=== PATIENT | male | born 1945 | race Caucasian/White ===

== ENCOUNTER 2018-08-06 15:03 | Inpatient (IN) | payer BC, MEDICARE, OTHER ==
[~2018-08-06] VITALS: Ht 177.8 cm; Wt 135.0 kg
[2018-08-06 15:46] LABS: BASOPHILS # (AUTO) 0.1 X10'3 (0-0.2); BASOPHILS % (AUTO) 0.7 % (0-1); EOSINOPHILS # (AUTO) 0.2 X10'3 (0-0.9); EOSINOPHILS % (AUTO) 2.4 % (0-6); HEMATOCRIT 41.5 % (42.0-52.0); LYMPHOCYTES # (AUTO) 2.5 X10'3 (1.1-4.8); LYMPHOCYTES % (AUTO) 27.1 % (21-51); MEAN CORPUSCULAR HEMOGLOBIN 29.1 PG (27.0-31.0); MEAN CORPUSCULAR HGB CONC 33.8 g/dL (33.0-36.5); MEAN CORPUSCULAR VOLUME 86.1 FL (78-98); MONOCYTES # (AUTO) 0.9 X10'3 (0-0.9); MONOCYTES % (AUTO) 9.7 % (2-12); NEUTROPHILS # (AUTO) 5.5 X10'3 (1.8-7.7); NEUTROPHILS % (AUTO) 60.1 % (42-75); PLATELET COUNT 244 X10'3 (140-440); RED BLOOD COUNT 4.83 X10'6 (4.70-6.10); WHITE BLOOD COUNT 9.1 X10'3 (4.5-11.0)
[2018-08-06 16:11] LABS: PROTHROMBIN TIME 9.6 SECONDS (9.0-12.0)
[2018-08-06 16:12] LABS: INR 0.9 INR
[2018-08-06 16:16] LABS: ALANINE AMINOTRANSFERASE 24 U/L (12-78); ALBUMIN 3.2 G/DL (3.4-5.0); ALBUMIN/GLOBULIN RATIO 0.7 (1.1-1.5); ALKALINE PHOSPHATASE 76 IU/L (46-116); ANION GAP 10 (8-16); ASPARTATE AMINO TRANSFERASE 28 U/L (10-37); BILIRUBIN,TOTAL 0.3 MG/DL (0.1-1.0); BLOOD UREA NITROGEN 37 MG/DL (7-18); BUN/CREATININE RATIO 18.7 (5.4-32.0); CHLORIDE 100 MMOL/L (99-107); CREATININE 1.98 MG/DL (0.60-1.10); GLUCOSE 279 MG/DL (70-104); POTASSIUM 4.2 MMOL/L (3.5-5.1); SODIUM 133 MMOL/L (135-145); TOTAL CARBON DIOXIDE 23.5 MMOL/L (24-32); TOTAL PROTEIN 7.8 G/DL (6.4-8.2); eGFR 33 ML/MIN
[2018-08-06] MEDS ORDERED: aspirin 325mg tablet PO ONE (16:20)
[2018-08-06] MEDS ORDERED: enoxaparin 100mg/ml syringe SUBCUT ONE ×2 (16:20→16:25)
[2018-08-06 16:22] LABS: MAGNESIUM 1.9 MG/DL (1.5-2.4)
[2018-08-06] MEDS ORDERED: enoxaparin 40mg/0.4ml syringe SQ ONE (16:25)
[2018-08-06 16:59] LABS: D-DIMER 0.71 MG/L FEU (0-0.50)
[2018-08-06] MEDS ORDERED: LISI40TA4 PO (17:06)
[2018-08-06] MEDS ORDERED: TRAM50TA2 PO ×2 (17:06)
[2018-08-06] MEDS ORDERED: CHOL100046 PO (17:06)
[2018-08-06] MEDS ORDERED: ALLO300T2 PO (17:06)
[2018-08-06] MEDS ORDERED: MAGN400C PO (17:06)
[2018-08-06] MEDS ORDERED: MELO-102 PO (17:06)
[2018-08-06] MEDS ORDERED: SILD100T PO (17:06)
[2018-08-06] MEDS ORDERED: DEXT38GE12 PO (17:06)
[2018-08-06] MEDS ORDERED: BROM0.8T PO (17:06)
[2018-08-06] MEDS ORDERED: CYAN-19 PO (17:06)
[2018-08-06] MEDS ORDERED: ASPI-611 PO (17:06)
[2018-08-06] MEDS ORDERED: POTA20TA19 PO (17:06)
[2018-08-06] MEDS ORDERED: METO50TA17 PO (17:06)
[2018-08-06] MEDS ORDERED: FURO40TA4 PO (17:06)
[2018-08-06] MEDS ORDERED: DESO15CR13 TP (17:06)
[2018-08-06] MEDS ORDERED: KETO120S3 TOP (17:06)
[2018-08-06] MEDS ORDERED: INSU500I SQ ×2 (17:06)
[2018-08-06] MEDS ORDERED: SIMV20TA5 PO (17:06)
[2018-08-06] MEDS ORDERED: non-formulary drug (Meloxicam 1 TAB) PO PRN (17:50)
[2018-08-06] MEDS ORDERED: magnesium Cl slow-release 64mg tablet PO PRN (17:50)
[2018-08-06] MEDS ORDERED: potassium Cl 20 mEq SR tablet PO PRN ×2 (17:50)
[2018-08-06] MEDS ORDERED: traMADol 50MG tablet PO PRN ×2 (17:50)
[2018-08-06] MEDS ORDERED: potassium Cl 40MEQ/NS 500ml 500 ML IV PRN ×2 (17:50)
[2018-08-06] MEDS ORDERED: magnesium 2GM in 50ml NS 50 ML IV PRN (17:50)
[2018-08-06] MEDS ORDERED: magnesium 4gm in 100ml NS 100 ML IV PRN (17:50)
[2018-08-06] MEDS ORDERED: metoprolol tartrate 1mg/ml inj IV PRN (18:00)
[2018-08-06] MEDS ORDERED: nitroGLYCERIN 0.4mg SUBLingual tab SL PRN (18:00)
[2018-08-06] MEDS ORDERED: regadenoson 0.4mg/5ml syringe IV PRN (18:00)
[2018-08-06] MEDS ORDERED: aminophylline 250mg/10ml inj. IV PRN (18:00)
[2018-08-06] MEDS ORDERED: naproxen 500mg tablet PO PRN (18:10)
[2018-08-06] MEDS: atorvastatin 10mg tablet PO SCH (20:08)
[2018-08-06] MEDS: metoprolol tartrate 50mg tablet PO SCH (20:09)
[2018-08-06] MEDS: furosemide 40mg tablet PO SCH (20:09)
--- NOTE | 2018-08-06 20:30 | NUR ---
ADMITTED A 73 Y.O. MALE FROM ER PER [facility] TO ROOM 349A.
[2018-08-06 20:45] VITALS: BP 109/41
[2018-08-06] MEDS ORDERED: non-formulary drug (Simvastatin* (Zocor*) 1 TAB) PO SCH (21:00)
--- NOTE | 2018-08-06 21:50 | NUR ---
ACCU PDADR=086, PT. REFUSED INSULIN PER PROTOCOL.
[2018-08-06] MEDS ORDERED: pneumococcal 23-VAL P-sac vacc 25 mcg/0.5ml vial IMVAC ONE (21:55)
[2018-08-07] VITALS: BP 115/64
[2018-08-07 05:25] LABS: BASOPHILS # (AUTO) 0.1 X10'3 (0-0.2); BASOPHILS % (AUTO) 0.7 % (0-1); EOSINOPHILS # (AUTO) 0.4 X10'3 (0-0.9); EOSINOPHILS % (AUTO) 5.4 % (0-6); HEMATOCRIT 36.3 % (42.0-52.0); HEMOGLOBIN 12.3 g/dl (14.0-17.9); LYMPHOCYTES # (AUTO) 2.8 X10'3 (1.1-4.8); LYMPHOCYTES % (AUTO) 39.8 % (21-51); MEAN CORPUSCULAR HEMOGLOBIN 28.9 PG (27.0-31.0); MEAN CORPUSCULAR HGB CONC 33.7 g/dL (33.0-36.5); MEAN CORPUSCULAR VOLUME 85.6 FL (78-98); MEAN PLATELET VOLUME 7.9 FL (7.4-10.4); MONOCYTES # (AUTO) 0.8 X10'3 (0-0.9); NEUTROPHILS # (AUTO) 2.9 X10'3 (1.8-7.7); NEUTROPHILS % (AUTO) 42.1 % (42-75); PLATELET COUNT 198 X10'3 (140-440); RED BLOOD COUNT 4.24 X10'6 (4.70-6.10); RED CELL DISTRIBUTION WIDTH 16.1 % (11.5-14.5)
[2018-08-07 05:40] LABS: ALBUMIN 2.5 G/DL (3.4-5.0); ANION GAP 9 (8-16); BLOOD UREA NITROGEN 38 MG/DL (7-18); BUN/CREATININE RATIO 19.8 (5.4-32.0); CALCIUM 8.6 MG/DL (8.5-10.1); CHLORIDE 105 MMOL/L (99-107); CREATININE 1.92 MG/DL (0.60-1.10); GLUCOSE 219 MG/DL (70-104); MAGNESIUM 1.9 MG/DL (1.5-2.4); POTASSIUM 4.2 MMOL/L (3.5-5.1); SODIUM 137 MMOL/L (135-145); TOTAL CARBON DIOXIDE 22.8 MMOL/L (24-32); eGFR 35 ML/MIN
--- NOTE | 2018-08-07 06:33 | NUR ---
Patient in room [facility] 349. I have received report from Dalton EDOUARD and had the opportunity to ask questions and assume patient care.
[2018-08-07] MEDS: K and/or MAG REPLACEMENT MC SCH (07:06)
[2018-08-07] MEDS: aspirin 81mg tablet.DR PO SCH (07:06)
[2018-08-07] MEDS: allopurinol 300 MG tablet PO SCH (07:07)
[2018-08-07] MEDS: CYCLOSET PO SCH (07:07)
[2018-08-07 07:29] VITALS: BP 134/61
[2018-08-07] MEDS: metoprolol tartrate 50mg tablet PO SCH ×2 (08:00→20:02)
[2018-08-07] MEDS: lisinopril 20mg tablet PO SCH (08:00)
[2018-08-07] MEDS ORDERED: non-formulary drug (Lisinopril* 1 TAB) PO SCH (08:00)
[2018-08-07] MEDS ORDERED: non-formulary drug (Aspirin (Aspir 81) 1 TAB) PO SCH (08:00)
[2018-08-07] MEDS: furosemide 40mg tablet PO SCH ×2 (08:00→20:02)
[2018-08-07] MEDS ORDERED: BROMOCRIPTINE MESYLATE PO SCH (08:00)
[2018-08-07] MEDS ORDERED: MESSAGE TO PHARMACY PO ONE (10:55)
[2018-08-07] MEDS ORDERED: glucagon, human recombinant 1mg kit SUBCUT PRN (10:55)
[2018-08-07] MEDS ORDERED: dextrose ORAL solution 15 GM/59 ML bottle PO PRN ×2 (10:55)
[2018-08-07] MEDS ORDERED: dextrose 50%-water 50ml dispensing syringe IV PRN ×2 (10:55)
[2018-08-07] MEDS ORDERED: aminophylline inj. 10 ML IV ONE (11:27)
[2018-08-07] MEDS ORDERED: regadenoson 0.4mg/5ml syringe IV ONE (11:27)
--- NOTE | 2018-08-07 11:35 | NUR ---
Lexiscan stress test cancelled per Dr. Lopez. Patient had rest image only. pt asymptomatic, BP:153/52, HR:52, RR 16. SpO2 96% RA Dr. Lopez to follow up with consult.
--- NOTE | 2018-08-07 12:29 | NUR ---
Dr. Cheatham stated to keep patient NPO until Dr. Lopez consults with pt. Asked MD if she would like IVF ordered since pt is NPO. stated no. Awaiting for Dr. Lopez to see pt.
[2018-08-07] MEDS ORDERED: clopidogrel 75mg tablet PO ONE (12:50)
[2018-08-07] MEDS: insulin Lispro (HumaLOG) vial - multi-dose SQ SCH ×2 (13:16→18:45)
[2018-08-07 13:23] VITALS: BP 160/64
--- NOTE | 2018-08-07 15:49 | NUR ---
DM Consult: A1C 9.0. Pt seen by RD for written/verbal DM ed; RD contact information provided. RD encouraged to attend CDE course since pt states he would like refresher course. Pt stated he will have is stratigraphy teacher refer him if need be since [facility] since [facility] provide their own DM ed. Pt PO 100% meals meeting needs. LBM 08/06. GLU 207 w/ Lantus to start tonight. No nutrition concerns at this time. Rec: 1. continue heart healthy/carb controlled diet 2. wt per rx Addendum: 08/07/18 at [address] Amended: Links added.
--- NOTE | 2018-08-07 18:16 | NUR ---
Problems reprioritized. Patient report given, questions answered & plan of care reviewed with Dalton EDOUARD.
--- NOTE | 2018-08-07 18:17 | NUR ---
Patient in room [facility] 349. I have received report from SISSY EDOUARD and had the opportunity to ask questions and assume patient care.
[2018-08-07 19:00] VITALS: BP 151/68
[2018-08-07] MEDS ORDERED: insulin glargine (Lantus) pen - multi-dose SQ SCH (21:00)
[2018-08-07] MEDS: atorvastatin 10mg tablet PO SCH (21:04)
[2018-08-08] VITALS: BP 141/64
[2018-08-08 05:32] LABS: BASOPHILS % (AUTO) 0.6 % (0-1); EOSINOPHILS # (AUTO) 0.3 X10'3 (0-0.9); EOSINOPHILS % (AUTO) 4.5 % (0-6); HEMATOCRIT 37.1 % (42.0-52.0); HEMOGLOBIN 12.5 g/dl (14.0-17.9); LYMPHOCYTES # (AUTO) 2.1 X10'3 (1.1-4.8); MEAN CORPUSCULAR HEMOGLOBIN 28.7 PG (27.0-31.0); MEAN CORPUSCULAR HGB CONC 33.6 g/dL (33.0-36.5); MEAN CORPUSCULAR VOLUME 85.4 FL (78-98); MONOCYTES # (AUTO) 0.7 X10'3 (0-0.9); MONOCYTES % (AUTO) 11.4 % (2-12); NEUTROPHILS # (AUTO) 3.3 X10'3 (1.8-7.7); NEUTROPHILS % (AUTO) 51.5 % (42-75); PLATELET COUNT 201 X10'3 (140-440); RED BLOOD COUNT 4.34 X10'6 (4.70-6.10); RED CELL DISTRIBUTION WIDTH 16.2 % (11.5-14.5); WHITE BLOOD COUNT 6.5 X10'3 (4.5-11.0)
[2018-08-08 05:45] LABS: ALBUMIN 2.7 G/DL (3.4-5.0); ANION GAP 10 (8-16); BLOOD UREA NITROGEN 32 MG/DL (7-18); BUN/CREATININE RATIO 18.5 (5.4-32.0); CALCIUM 9.1 MG/DL (8.5-10.1); CHLORIDE 104 MMOL/L (99-107); CREATININE 1.73 MG/DL (0.60-1.10); GLUCOSE 208 MG/DL (70-104); MAGNESIUM 1.8 MG/DL (1.5-2.4); SODIUM 137 MMOL/L (135-145); TOTAL CARBON DIOXIDE 22.8 MMOL/L (24-32); eGFR 39 ML/MIN
--- NOTE | 2018-08-08 06:39 | NUR ---
Problems reprioritized. Patient report given, questions answered & plan of care reviewed with SAYDA EDOUARD.
[2018-08-08 07:00] VITALS: BP 152/59
[2018-08-08] MEDS ORDERED: clopidogrel 75mg tablet PO SCH (08:00)
[2018-08-08] MEDS: metoprolol tartrate 50mg tablet PO SCH (08:00)
[2018-08-08] MEDS: CYCLOSET PO SCH (08:00)
[2018-08-08] MEDS: K and/or MAG REPLACEMENT MC SCH (08:00)
[2018-08-08] MEDS: aspirin 81mg tablet.DR PO SCH (09:43)
[2018-08-08] MEDS: allopurinol 300 MG tablet PO SCH (09:43)
[2018-08-08] MEDS: furosemide 40mg tablet PO SCH (09:46)
[2018-08-08] MEDS: lisinopril 20mg tablet PO SCH (09:47)
[2018-08-08] MEDS: insulin Lispro (HumaLOG) vial - multi-dose SQ SCH ×2 (09:57→13:37)
[2018-08-08 12:00] VITALS: BP 151/51
[2018-08-08] MEDS ORDERED: CLOP75TA35 PO (12:05)
[2018-08-08] MEDS ORDERED: NITR0.4T51 SL (12:05)
== END 2018-08-08 14:10 | disposition home or self-care (01) | DRG 282 ==
LOC: ER 15:03 → ED HOLD 17:50 → EDBEDREQ 19:47 → SUR 3N 20:25
PROVIDERS: ADMIT Internal Medicine; ATTEND Internal Medicine
PROC: 4A02XM4 Measurement of Cardiac Total Activity, External Approach (ICD-10-PCS; principal; 2018-08-06)
PROC: 3E033HZ Introduction of Radioactive Substance into Peripheral Vein, Percutaneous Approach (ICD-10-PCS; 2018-08-06)
DX: I21.4 Non-ST elevation (NSTEMI) myocardial infarction (principal); E11.22 Type 2 diabetes mellitus with diabetic chronic kidney disease; E78.5 Hyperlipidemia, unspecified; I87.2 Venous insufficiency (chronic) (peripheral); M10.9 Gout, unspecified; I12.9 Hypertensive chronic kidney disease with stage 1 through stage 4 chronic kidney disease, or unspecified chronic kidney disease; R00.0 Tachycardia, unspecified; N18.3 Chronic kidney disease, stage 3 (moderate); Z66 Do not resuscitate; Z79.4 Long term (current) use of insulin; Z85.51 Personal history of malignant neoplasm of bladder; Z86.14 Personal history of Methicillin resistant Staphylococcus aureus infection; Z79.899 Other long term (current) drug therapy; Z79.82 Long term (current) use of aspirin
CPT/HCPCS: 36415; 71045; 78451; 80048; 80053; 82948; 83036; 83735; 83880; 84484; 85025; 85379; 85610; 87070; 93005; 93306; 96372; 99285; A9500; G0378; J0280; J1650; J1815

== ENCOUNTER 2019-02-07 10:22 | Inpatient (IN) | payer BC, MEDICARE, OTHER ==
[~2019-02-07] VITALS: Ht 177.8 cm; Wt 127.0 kg
[~2019-02-07 10:22] MED LIST: ALLO300T2 PO; ASPI-611 PO; BROM0.8T PO; CHOL100046 PO; CLOP75TA35 PO; CYAN-51 PO; DESO15CR13 TP; DEXT38GE12 PO; FURO40TA4 PO; INSU500I SQ; KETO120S3 TOP; LISI40TA4 PO; MAGN400C PO; MELO-102 PO; METO50TA17 PO; NITR0.4T51 SL; POTA20TA19 PO; SILD100T PO; SIMV20TA5 PO; TRAM50TA2 PO
[2019-02-07] MEDS ORDERED: normal saline 1000ML IV soln IVB ONE (10:45)
[2019-02-07 11:33] LABS: CLARITY,URINE CLOUDY (Clear); COLOR,URINE YELLOW (Yellow); GLUCOSE, URINE >=1000 mg/dl (Neg); KETONES,URINE NEGATIVE (Neg); LEUKOCYTE ESTERASE ,URINE MODERATE (Neg); NITRITES, URINE NEGATIVE (Neg); OCCULT BLOOD,URINE LARGE (Neg); PROTEIN,URINE 100 mg/dl (Neg); UROBILINOGEN,URINE 0.2 E.U/dL (0.2-1.0)
[2019-02-07 11:34] LABS: UA COLLECTION TYPE CLN CATCH MIDSTREAM
[2019-02-07 11:41] LABS: SQUAMOUS EPITHELIAL CELL,UR FEW /LPF (FEW); WBC CLUMPS,URINE MODERATE /HPF (NEGATIVE); WBC,URINE TNTC /HPF (0-4)
[2019-02-07 11:42] LABS: BACTERIA,URINE 4+ /HPF (Neg); HYALINE CASTS 0-3 /LPF (NEGATIVE)
[2019-02-07 11:50] LABS: BASOPHILS # (AUTO) 0.1 X10'3 (0-0.2); BASOPHILS % (AUTO) 0.8 % (0-1); EOSINOPHILS # (AUTO) 0.1 X10'3 (0-0.9); EOSINOPHILS % (AUTO) 0.4 % (0-6); HEMATOCRIT 42.3 % (42.0-52.0); LYMPHOCYTES # (AUTO) 2.8 X10'3 (1.1-4.8); LYMPHOCYTES % (AUTO) 15.7 % (21-51); MEAN CORPUSCULAR HEMOGLOBIN 28.4 PG (27.0-31.0); MEAN CORPUSCULAR HGB CONC 33.1 g/dL (33.0-36.5); MEAN CORPUSCULAR VOLUME 85.8 FL (78-98); MEAN PLATELET VOLUME 7.3 FL (7.4-10.4); MONOCYTES # (AUTO) 1.5 X10'3 (0-0.9); MONOCYTES % (AUTO) 8.5 % (2-12); NEUTROPHILS % (AUTO) 74.6 % (42-75); PLATELET COUNT 289 X10'3 (140-440); RED BLOOD COUNT 4.93 X10'6 (4.70-6.10); RED CELL DISTRIBUTION WIDTH 14.6 % (11.5-14.5); WHITE BLOOD COUNT 17.5 X10'3 (4.5-11.0)
[2019-02-07] MEDS ORDERED: CefTRIAXone 2gm/D5W 50ml 50 ML IV ONE (11:55)
[2019-02-07] MEDS ORDERED: normal saline 1000ML IV soln IV ONE (11:55)
[2019-02-07 12:16] LABS: ALANINE AMINOTRANSFERASE 19 U/L (12-78); ALBUMIN 2.9 G/DL (3.4-5.0); ALBUMIN/GLOBULIN RATIO 0.6 (1.1-1.5); ALKALINE PHOSPHATASE 80 IU/L (46-116); ANION GAP 13 (8-16); ASPARTATE AMINO TRANSFERASE 14 U/L (10-37); BILIRUBIN,TOTAL 0.8 MG/DL (0.1-1.0); BLOOD UREA NITROGEN 37 MG/DL (7-18); BUN/CREATININE RATIO 17.5 (5.4-32.0); CALCIUM 9.1 MG/DL (8.5-10.1); CHLORIDE 101 MMOL/L (99-107); CREATININE 2.12 MG/DL (0.60-1.10); GLUCOSE 310 MG/DL (70-104); SODIUM 135 MMOL/L (135-145); TOTAL CARBON DIOXIDE 21.5 MMOL/L (24-32); TOTAL PROTEIN 7.7 G/DL (6.4-8.2); TROPONIN I < 0.04 NG/ML (0.0-0.05); eGFR 31 ML/MIN
[2019-02-07] MEDS ORDERED: ondansetron/PF 4mg/2ml inj IV PRN (12:45)
[2019-02-07] MEDS ORDERED: magnesium hydroxide 30ml (MOM) UD suspension PO PRN (12:45)
[2019-02-07] MEDS ORDERED: mag hydrox/Alum hydrox/simeth 30ml oral suspension PO PRN (12:45)
[2019-02-07] MEDS ORDERED: acetaminophen 325mg tablet PO PRN (12:45)
[2019-02-07] MEDS ORDERED: METO-384 PO (13:09)
[2019-02-07] MEDS ORDERED: ISOS60TA4 PO (13:11)
[2019-02-07] MEDS: normal saline 1000ml 1,000 ML IV SCH ×2 (13:54→22:45)
--- NOTE | 2019-02-07 14:00 | NUR ---
Patient in room PCU 3025. I have received report from JAVAN Saenz and had the opportunity to ask questions and assume patient care.
[2019-02-07 15:30] VITALS: BP 93/73
[2019-02-07] MEDS ORDERED: NEFA200T PO (16:47)
[2019-02-07] MEDS ORDERED: ATOR40TA71 PO (16:47)
[2019-02-07] MEDS ORDERED: allopurinol 300 MG tablet PO PRN (17:10)
[2019-02-07] MEDS ORDERED: nitroGLYCERIN 0.4mg SUBLingual tab SL PRN (17:10)
[2019-02-07] MEDS ORDERED: hydrocortisone 1% cream 28gm TP PRN (17:10)
--- NOTE | 2019-02-07 17:11 | NUR ---
Sent to Dr Ordonez PAGER ID: [phone] MESSAGE: RE: Nathen Coyle [id number]. Pt had hyperglycemia in ED, Hx of DM II; no orders for ACHS. -Marivel 3372
[2019-02-07 18:00] VITALS: BP 195/82
--- NOTE | 2019-02-07 18:01 | NUR ---
Sent to Dr Ordonez RE: Nathen Coyle [id number]. BP 187/80. -Marivel 5129
[2019-02-07] MEDS ORDERED: hydrALAZINE 20mg/ml inj. IV ONE (18:05)
--- NOTE | 2019-02-07 18:15 | NUR ---
Problems reprioritized. Patient report given, questions answered & plan of care reviewed with JAVAN Kemp.
--- NOTE | 2019-02-07 18:23 | NUR ---
Patient in room PCU 3025. I have received report from Marivel EDOUARD and had the opportunity to ask questions and assume patient care.
[2019-02-07 18:30] VITALS: BP 156/60
[2019-02-07] MEDS: heparin, porcine 5000 units/ml vial SQ SCH (19:07)
[2019-02-07] MEDS: metoprolol succinate 25mg (24-HOUR) SR. Tablet PO SCH (19:07)
--- NOTE | 2019-02-07 19:30 | NUR ---
pt HR went up to 150, pt was using wash cloth to wipe his body in bed. Hr went back to normal SR after
[2019-02-07] MEDS: nystatin 15 GM powder TP SCH (21:00)
[2019-02-07] MEDS ORDERED: HUMULIN R SQ SCH (21:00)
--- NOTE | 2019-02-07 21:52 | NUR ---
Paged Dr. Armstrong PAGER ID: [phone] MESSAGE: Monalisa #[phone], Nathen Coyle [id number]. Has home insulin, humulinR darrenpen, 110 units scheduled for HS (order put in by Dr. Ordonez) but his evening BS was 80. Please advise on dosage. Thanks Addendum: 02/07/19 at 2158 by Monalisa Puente RN Dr. Armstrong advised to use our evening sliding scale and to hold the dose.
--- NOTE | 2019-02-07 22:09 | NUR ---
contacted Dr. Armstrong again about Blood sugar of 80, he said follow the hyperglycemia protocal and dont give anything for tonight. but take blood sugar again in 3hours
[2019-02-07 23:00] VITALS: BP 144/65
[2019-02-08] VITALS (7 sets, daily range): BP systolic 98–177; BP diastolic 49–82
[2019-02-08] MEDS: magnesium oxide 400mg tablet PO SCH ×4 (00:10→23:36)
--- NOTE | 2019-02-08 01:00 | NUR ---
Patient in room PCU 3025. I have received report from Viridiana EDOUARD and had the opportunity to ask questions and assume patient care.
--- NOTE | 2019-02-08 01:05 | NUR ---
Problems reprioritized. Patient report given, questions answered & plan of care reviewed with Monalisa EDOUARD.
[2019-02-08] MEDS: normal saline 1000ml 1,000 ML IV SCH ×2 (03:27→16:17)
[2019-02-08 05:25] LABS: ALBUMIN 2.3 G/DL (3.4-5.0); ANION GAP 11 (8-16); BLOOD UREA NITROGEN 28 MG/DL (7-18); BUN/CREATININE RATIO 16.9 (5.4-32.0); CALCIUM 8.5 MG/DL (8.5-10.1); CHLORIDE 110 MMOL/L (99-107); CREATININE 1.66 MG/DL (0.60-1.10); GLUCOSE 98 MG/DL (70-104); SODIUM 142 MMOL/L (135-145); TOTAL CARBON DIOXIDE 21.3 MMOL/L (24-32); eGFR 41 ML/MIN
[2019-02-08 05:32] LABS: BASOPHILS % (AUTO) 0.1 % (0-1); EOSINOPHILS % (AUTO) 0.2 % (0-6); HEMATOCRIT 36.9 % (42.0-52.0); HEMOGLOBIN 12.4 g/dl (14.0-17.9); LYMPHOCYTES # (AUTO) 2.6 X10'3 (1.1-4.8); LYMPHOCYTES % (AUTO) 18.5 % (21-51); MEAN CORPUSCULAR HEMOGLOBIN 28.4 PG (27.0-31.0); MEAN CORPUSCULAR HGB CONC 33.6 g/dL (33.0-36.5); MEAN CORPUSCULAR VOLUME 84.4 FL (78-98); MEAN PLATELET VOLUME 7.1 FL (7.4-10.4); MONOCYTES # (AUTO) 1.1 X10'3 (0-0.9); MONOCYTES % (AUTO) 8.1 % (2-12); NEUTROPHILS # (AUTO) 10.3 X10'3 (1.8-7.7); NEUTROPHILS % (AUTO) 73.1 % (42-75); PLATELET COUNT 238 X10'3 (140-440); RED BLOOD COUNT 4.37 X10'6 (4.70-6.10); RED CELL DISTRIBUTION WIDTH 14.2 % (11.5-14.5); WHITE BLOOD COUNT 14.1 X10'3 (4.5-11.0)
--- NOTE | 2019-02-08 06:15 | NUR ---
Problems reprioritized. Patient report given, questions answered & plan of care reviewed with Andie EDOUARD and Anel EDOUARD.
[2019-02-08] MEDS: aspirin 81mg tablet.DR PO SCH (07:50)
[2019-02-08] MEDS: CefTRIAXone 2gm/D5W 50ml 50 ML IV SCH (07:50)
[2019-02-08] MEDS: isosorbide dinitrate 30mg tablet PO SCH (07:50)
[2019-02-08] MEDS: metoprolol succinate 25mg (24-HOUR) SR. Tablet PO SCH ×2 (07:51→20:04)
[2019-02-08] MEDS: atorvastatin 20mg tablet PO SCH (07:51)
[2019-02-08] MEDS: cyanocobalamin 500mcg tablet PO SCH (07:51)
[2019-02-08] MEDS: potassium Cl 20 mEq SR tablet PO SCH (07:51)
[2019-02-08] MEDS: heparin, porcine 5000 units/ml vial SQ SCH ×2 (07:52→20:05)
[2019-02-08] MEDS: lisinopril 20mg tablet PO SCH (07:52)
[2019-02-08] MEDS: vitamin D (cholecalciferol) 1,000 unit tablet PO SCH (07:52)
[2019-02-08] MEDS ORDERED: HUMULIN R SQ SCH (08:00)
--- NOTE | 2019-02-08 08:00 | NUR ---
Patient was c/o shakiness and panic attack symptoms. Blood glucose was checked and blood pressure was obtained. Patient had a significant drop from the 0700 blood pressure. MD was notified and no new orders were obtained. Will monitor closely.
[2019-02-08] MEDS ORDERED: MESSAGE TO PHARMACY PO ONE (08:55)
[2019-02-08] MEDS ORDERED: glucagon, human recombinant 1mg kit SUBCUT PRN (08:55)
[2019-02-08] MEDS ORDERED: dextrose 50%-water 50ml dispensing syringe IV PRN ×2 (08:55)
[2019-02-08] MEDS ORDERED: dextrose ORAL solution 15 GM/59 ML bottle PO PRN ×2 (08:55)
[2019-02-08] MEDS ORDERED: insulin regular, human vial - multi-dose SQ SCH (09:15)
[2019-02-08] MEDS: nystatin 15 GM powder TP SCH ×3 (13:15→21:12)
--- NOTE | 2019-02-08 17:44 | NUR ---
PAGER ID: [phone] MESSAGE: [id number]. Can we change to the Humalog insulin for the hyperglycemic protocol and D/C using his insulin pen? Patient insulin has been ineffective treating blood sugars over 200 multiple times. Andie [phone]
--- NOTE | 2019-02-08 18:21 | NUR ---
Patient in room PCU 3025. I have received report from Andie EDOUARD and had the opportunity to ask questions and assume patient care.
--- NOTE | 2019-02-08 18:28 | NUR ---
Problems reprioritized. Patient report given, questions answered & plan of care reviewed with Viridiana EDOUARD. Patient stable at transfer of care.
--- NOTE | 2019-02-08 18:41 | NUR ---
PAGER ID: [phone] MESSAGE: Dr. José Luis Temple, pt Andres Slater has Humilin R for his blood sugar and that doesn't seem to help bring down his blood sugar. Can we put him on our hypoglycemic protocol and DC his home insulin? Viridiana EDOUARD [phone], Thanks!
--- NOTE | 2019-02-08 18:56 | NUR ---
Dr Ordonez gave an order for the hyperglycemic protocol and DC his old insulin
[2019-02-08] MEDS: insulin Lispro (HumaLOG) vial - multi-dose SQ SCH (19:09)
[2019-02-08] MEDS: lactobacillus rhamnosus 10,000 MMU CELLS/CAPSULE PO SCH (20:12)
[2019-02-08] MEDS ORDERED: insulin glargine (Lantus) pen - multi-dose SQ SCH (21:00)
[2019-02-08] MEDS: insulin glargine (Lantus) pen - multi-dose SQ SCH (21:11)
[2019-02-09] VITALS (7 sets, daily range): BP systolic 117–174; BP diastolic 55–91
[2019-02-09] MEDS: normal saline 1000ml 1,000 ML IV SCH ×3 (02:00→21:57)
[2019-02-09 05:28] LABS: BASOPHILS # (AUTO) 0.1 X10'3 (0-0.2); BASOPHILS % (AUTO) 0.6 % (0-1); EOSINOPHILS # (AUTO) 0.4 X10'3 (0-0.9); EOSINOPHILS % (AUTO) 4.2 % (0-6); HEMOGLOBIN 11.9 g/dl (14.0-17.9); LYMPHOCYTES # (AUTO) 2.9 X10'3 (1.1-4.8); MEAN CORPUSCULAR HGB CONC 34.1 g/dL (33.0-36.5); MEAN CORPUSCULAR VOLUME 84.9 FL (78-98); MEAN PLATELET VOLUME 7.3 FL (7.4-10.4); MONOCYTES # (AUTO) 1.2 X10'3 (0-0.9); MONOCYTES % (AUTO) 11.1 % (2-12); NEUTROPHILS # (AUTO) 5.8 X10'3 (1.8-7.7); NEUTROPHILS % (AUTO) 56.1 % (42-75); PLATELET COUNT 235 X10'3 (140-440); RED BLOOD COUNT 4.12 X10'6 (4.70-6.10); RED CELL DISTRIBUTION WIDTH 14.2 % (11.5-14.5); WHITE BLOOD COUNT 10.4 X10'3 (4.5-11.0)
[2019-02-09 05:33] LABS: ALBUMIN 2.2 G/DL (3.4-5.0); ANION GAP 8 (8-16); BLOOD UREA NITROGEN 33 MG/DL (7-18); BUN/CREATININE RATIO 19.2 (5.4-32.0); CALCIUM 8.6 MG/DL (8.5-10.1); CHLORIDE 107 MMOL/L (99-107); CREATININE 1.72 MG/DL (0.60-1.10); GLUCOSE 112 MG/DL (70-104); POTASSIUM 4.2 MMOL/L (3.5-5.1); SODIUM 139 MMOL/L (135-145); TOTAL CARBON DIOXIDE 23.7 MMOL/L (24-32); eGFR 39 ML/MIN
--- NOTE | 2019-02-09 06:29 | NUR ---
Patient in room PCU 3025. I have received report from Viridiana EDOUARD and had the opportunity to ask questions and assume patient care.
[2019-02-09] MEDS: lisinopril 20mg tablet PO SCH (08:00)
[2019-02-09] MEDS: metoprolol succinate 25mg (24-HOUR) SR. Tablet PO SCH ×2 (08:00→19:40)
[2019-02-09] MEDS: CefTRIAXone 2gm/D5W 50ml 50 ML IV SCH (08:39)
[2019-02-09] MEDS: lactobacillus rhamnosus 10,000 MMU CELLS/CAPSULE PO SCH ×2 (08:40→19:39)
[2019-02-09] MEDS: aspirin 81mg tablet.DR PO SCH (08:41)
[2019-02-09] MEDS: isosorbide dinitrate 30mg tablet PO SCH (08:41)
[2019-02-09] MEDS: magnesium oxide 400mg tablet PO SCH ×2 (08:42→15:16)
[2019-02-09] MEDS: atorvastatin 20mg tablet PO SCH (08:42)
[2019-02-09] MEDS: cyanocobalamin 500mcg tablet PO SCH (08:43)
[2019-02-09] MEDS: potassium Cl 20 mEq SR tablet PO SCH (08:43)
[2019-02-09] MEDS: vitamin D (cholecalciferol) 1,000 unit tablet PO SCH (08:44)
[2019-02-09] MEDS: nystatin 15 GM powder TP SCH ×3 (08:46→19:42)
[2019-02-09] MEDS: heparin, porcine 5000 units/ml vial SQ SCH ×2 (08:46→19:38)
[2019-02-09] MEDS: insulin Lispro (HumaLOG) vial - multi-dose SQ SCH ×3 (09:52→19:36)
--- NOTE | 2019-02-09 10:42 | NUR ---
Sent page to Dr. Patterson: PAGER ID: [phone] MESSAGE: [id number], Lola. Current BP medications ordered bottomed out patients BP to 98 SBP, Dr. Ordonez talked about adjusting medications. Did you still want them given? Thanks. Elli [phone]
--- NOTE | 2019-02-09 17:27 | NUR ---
Sent page to RT [id number] Leonides: LUIZ ordered for patient. Thanks, Elli [phone]
--- NOTE | 2019-02-09 17:57 | NUR ---
[place] documentation: I have reviewed and agree with all interventions, assessments performed and documented by JAVAN Tam. [place] Medication Administration: For this medication-pass time frame, all medication were reviewed, dispensed, administered and documented per hospital policy by JAVAN Tam.
--- NOTE | 2019-02-09 18:20 | NUR ---
Patient in room PCU 3022E. I have received report from JAVAN Calloway and had the opportunity to ask questions and assume patient care. Pt is alert and oriented X4, denies CP, n/v, pain. Pt is accompanied by who will call to find -out ABG's results. Will continue to monitor
--- NOTE | 2019-02-09 18:22 | NUR ---
Problems reprioritized. Patient report given, questions answered & plan of care reviewed with Donald EDOUARD.
[2019-02-09] MEDS: insulin glargine (Lantus) pen - multi-dose SQ SCH (22:00)
[2019-02-10] VITALS (7 sets, daily range): BP systolic 82–175; BP diastolic 40–100
[2019-02-10] MEDS: magnesium oxide 400mg tablet PO SCH ×4 (04:06→23:55)
[2019-02-10 06:07] LABS: BASOPHILS # (AUTO) 0.1 X10'3 (0-0.2); BASOPHILS % (AUTO) 0.7 % (0-1); EOSINOPHILS # (AUTO) 0.3 X10'3 (0-0.9); EOSINOPHILS % (AUTO) 2.9 % (0-6); HEMATOCRIT 34.8 % (42.0-52.0); HEMOGLOBIN 11.7 g/dl (14.0-17.9); LYMPHOCYTES # (AUTO) 2.6 X10'3 (1.1-4.8); LYMPHOCYTES % (AUTO) 30.3 % (21-51); MEAN CORPUSCULAR HEMOGLOBIN 28.7 PG (27.0-31.0); MEAN CORPUSCULAR HGB CONC 33.6 g/dL (33.0-36.5); MEAN CORPUSCULAR VOLUME 85.5 FL (78-98); MONOCYTES # (AUTO) 0.8 X10'3 (0-0.9); MONOCYTES % (AUTO) 9.2 % (2-12); NEUTROPHILS # (AUTO) 4.9 X10'3 (1.8-7.7); NEUTROPHILS % (AUTO) 56.9 % (42-75); PLATELET COUNT 238 X10'3 (140-440); RED BLOOD COUNT 4.07 X10'6 (4.70-6.10); RED CELL DISTRIBUTION WIDTH 13.9 % (11.5-14.5); WHITE BLOOD COUNT 8.7 X10'3 (4.5-11.0)
[2019-02-10 06:13] LABS: ALBUMIN 2.2 G/DL (3.4-5.0); ANION GAP 9 (8-16); BLOOD UREA NITROGEN 28 MG/DL (7-18); BUN/CREATININE RATIO 17.8 (5.4-32.0); CALCIUM 8.2 MG/DL (8.5-10.1); CHLORIDE 106 MMOL/L (99-107); CREATININE 1.57 MG/DL (0.60-1.10); GLUCOSE 247 MG/DL (70-104); POTASSIUM 4.6 MMOL/L (3.5-5.1); SODIUM 137 MMOL/L (135-145); TOTAL CARBON DIOXIDE 21.9 MMOL/L (24-32); eGFR 44 ML/MIN
--- NOTE | 2019-02-10 06:45 | NUR ---
Problems reprioritized. Patient report given, questions answered & plan of care reviewed with JAVAN Johnson. Pt stable at shift change
--- NOTE | 2019-02-10 06:48 | NUR ---
Patient in room PCU 3025. I have received report from Donald EDOUARD and had the opportunity to ask questions and assume patient care.
[2019-02-10 08:21] LABS: ABG BASE EXCESS -2.4 mmol/L (-2.0-3.0); ABG HCO3 20.4 mmol/L (22.0-26.0); ABG OXYGEN SATURATION 97.4 % (95-98); ABG PCO2 (T) 29.3 mmHg (35.0-45.0); ABG PO2 (T) 92.9 mmHg (83-108); ALLEN'S TEST Positive; FCOHb 0.3 % (0.5-1.5); FMetHb 0.1 % (0.3-1.12); MINUTE VOLUME 6 L/min; PATIENT TEMPERATURE 37.1; PEEP 5 cm H2O; RESPIRATORY RATE 14 b/min; RESPIRATORY RATE (OBSERVED) 14 b/min; TIDAL VOLUME 400 mL; TOTAL HEMOGLOBIN 11.8 G/dl (14.0-17.9)
[2019-02-10] MEDS: insulin Lispro (HumaLOG) vial - multi-dose SQ SCH ×3 (08:52→19:43)
[2019-02-10] MEDS: metoprolol succinate 25mg (24-HOUR) SR. Tablet PO SCH ×2 (08:54→19:46)
[2019-02-10] MEDS: cyanocobalamin 500mcg tablet PO SCH (08:57)
[2019-02-10] MEDS: potassium Cl 20 mEq SR tablet PO SCH (08:57)
[2019-02-10] MEDS: atorvastatin 20mg tablet PO SCH (08:58)
[2019-02-10] MEDS: vitamin D (cholecalciferol) 1,000 unit tablet PO SCH (08:59)
[2019-02-10] MEDS: lisinopril 20mg tablet PO SCH (08:59)
[2019-02-10] MEDS: aspirin 81mg tablet.DR PO SCH (09:00)
[2019-02-10] MEDS: isosorbide dinitrate 30mg tablet PO SCH (09:00)
[2019-02-10] MEDS: lactobacillus rhamnosus 10,000 MMU CELLS/CAPSULE PO SCH ×2 (09:01→19:47)
[2019-02-10] MEDS: heparin, porcine 5000 units/ml vial SQ SCH ×2 (09:06→19:48)
[2019-02-10] MEDS: CefTRIAXone 2gm/D5W 50ml 50 ML IV SCH (09:15)
[2019-02-10] MEDS: normal saline 1000ml 1,000 ML IV SCH (09:16)
[2019-02-10] MEDS: nystatin 15 GM powder TP SCH ×3 (09:35→21:55)
[2019-02-10] MEDS ORDERED: LORazepam 2 mg/ml vial IV ONE (10:50)
[2019-02-10 11:35] LABS: CHOL/HDL RATIO 4.7 (0.00-4.99); CHOLESTEROL 132 MG/DL (0-200); HDL CHOLESTEROL 28 MG/DL (35-60); LDL CHOLESTEROL 87 MG/DL (50-100); TRIGLYCERIDES 129 MG/DL (20-135)
--- NOTE | 2019-02-10 11:46 | NUR ---
Student documentation: I have reviewed interventions, assessments performed and documented by Tony [facility].
--- NOTE | 2019-02-10 11:47 | NUR ---
Student Medication Administration: For this medication-pass time frame, all medication were reviewed, dispensed, administered and documented per hospital policy by Tony [facility].
--- NOTE | 2019-02-10 15:35 | NUR ---
PAGER ID: [phone] MESSAGE: [id number] Nathen Coyle: MRI resulted. JAVAN Marquez Ext [phone]
--- NOTE | 2019-02-10 18:19 | NUR ---
Patient in room PCU 3028B. I have received report from JAVAN Calloway and had the opportunity to ask questions and assume patient care. Patient is alert and oriented, accompanied by relatives. Pt denies CP, n/v, dizziness, or pain. Will continue to monitor
--- NOTE | 2019-02-10 18:19 | NUR ---
Problems reprioritized. Patient report given, questions answered & plan of care reviewed with Donald EDOUARD.
[2019-02-10] MEDS: furosemide 40mg/4ml inj IV SCH (19:47)
[2019-02-10] MEDS ORDERED: metoprolol succinate 25mg (24-HOUR) SR. Tablet PO SCH (20:00)
[2019-02-10] MEDS: insulin glargine (Lantus) pen - multi-dose SQ SCH (21:54)
[2019-02-11 02:00] VITALS: BP 155/68
--- NOTE | 2019-02-11 06:00 | NUR ---
Patient in room PCU 3025. I have received report from Donald EDOUARD and had the opportunity to ask questions and assume patient care.
[2019-02-11 06:10] LABS: BASOPHILS # (AUTO) 0.1 X10'3 (0-0.2); BASOPHILS % (AUTO) 0.9 % (0-1); EOSINOPHILS # (AUTO) 0.3 X10'3 (0-0.9); EOSINOPHILS % (AUTO) 3.2 % (0-6); HEMATOCRIT 37.9 % (42.0-52.0); HEMOGLOBIN 12.5 g/dl (14.0-17.9); LYMPHOCYTES # (AUTO) 3.2 X10'3 (1.1-4.8); LYMPHOCYTES % (AUTO) 37.8 % (21-51); MEAN CORPUSCULAR HEMOGLOBIN 28.7 PG (27.0-31.0); MEAN CORPUSCULAR HGB CONC 33.1 g/dL (33.0-36.5); MEAN CORPUSCULAR VOLUME 86.8 FL (78-98); MEAN PLATELET VOLUME 7.7 FL (7.4-10.4); MONOCYTES % (AUTO) 11.4 % (2-12); NEUTROPHILS % (AUTO) 46.7 % (42-75); PLATELET COUNT 223 X10'3 (140-440); RED BLOOD COUNT 4.36 X10'6 (4.70-6.10); RED CELL DISTRIBUTION WIDTH 14.3 % (11.5-14.5); WHITE BLOOD COUNT 8.5 X10'3 (4.5-11.0)
--- NOTE | 2019-02-11 06:15 | NUR ---
Problems reprioritized. Patient report given, questions answered & plan of care reviewed with JAVAN Coelho . Patient stable at shift change
[2019-02-11 06:29] LABS: ALBUMIN 2.4 G/DL (3.4-5.0); ANION GAP 11 (8-16); BLOOD UREA NITROGEN 29 MG/DL (7-18); BUN/CREATININE RATIO 14.8 (5.4-32.0); CALCIUM 8.9 MG/DL (8.5-10.1); CHLORIDE 106 MMOL/L (99-107); CREATININE 1.96 MG/DL (0.60-1.10); GLUCOSE 128 MG/DL (70-104); POTASSIUM 4.5 MMOL/L (3.5-5.1); SODIUM 140 MMOL/L (135-145); TOTAL CARBON DIOXIDE 22.6 MMOL/L (24-32); eGFR 34 ML/MIN
[2019-02-11] MEDS: furosemide 40mg/4ml inj IV SCH (08:03)
[2019-02-11] MEDS: CefTRIAXone 2gm/D5W 50ml 50 ML IV SCH (08:04)
[2019-02-11] MEDS: cyanocobalamin 500mcg tablet PO SCH (08:05)
[2019-02-11] MEDS: heparin, porcine 5000 units/ml vial SQ SCH (08:05)
[2019-02-11] MEDS: vitamin D (cholecalciferol) 1,000 unit tablet PO SCH (08:05)
[2019-02-11] MEDS: magnesium oxide 400mg tablet PO SCH (08:06)
[2019-02-11] MEDS: potassium Cl 20 mEq SR tablet PO SCH (08:06)
[2019-02-11] MEDS: atorvastatin 20mg tablet PO SCH (08:07)
[2019-02-11] MEDS: lactobacillus rhamnosus 10,000 MMU CELLS/CAPSULE PO SCH (08:07)
[2019-02-11] MEDS: aspirin 81mg tablet.DR PO SCH (08:07)
[2019-02-11 08:09] VITALS: BP_SYST 150
[2019-02-11] MEDS: isosorbide dinitrate 30mg tablet PO SCH (08:09)
[2019-02-11] MEDS: lisinopril 20mg tablet PO SCH (08:09)
[2019-02-11] MEDS: metoprolol succinate 25mg (24-HOUR) SR. Tablet PO SCH (08:10)
[2019-02-11] MEDS: nystatin 15 GM powder TP SCH ×2 (08:14→13:26)
[2019-02-11] MEDS: insulin Lispro (HumaLOG) vial - multi-dose SQ SCH ×2 (08:42→13:24)
--- NOTE | 2019-02-11 11:22 | NUR ---
Initial: Pt admit with metabolic encephalopathy and sepsis secondary to UTI. Sepsis score 0 per physical assessment. Pt continues with some confusion and pt on Lasix for CHF per MD notes. Pt currently on CHO controlled diet with improving PO intake, previously averaging 50-75%, now 75-100% meeting nutrient needs. LBM 02/08. No edema or wounds. No nutrition diagnosis at this time. Will continue to follow. Recommendations: 1) Continue CHO controlled diet 2) Wt per rx Addendum: 02/11/19 at [address] Amended: Links added.
[2019-02-11] MEDS ORDERED: LEVO500T2 PO (12:11)
[2019-02-11] MEDS ORDERED: FURO40TA4 PO (12:11)
[2019-02-11] MEDS ORDERED: CLOP75TA15 PO (12:49)
--- NOTE | 2019-02-11 13:33 | NUR ---
Patient discharged stable to home with spouse. Discharge instructions given to patient and spouse verbally and written. [facility], spouse was able to make appointment. Hand written prescription for Levaquin given to spouse, prescription for [place] faxed to [place] in [place]. PIV x 1 removed, cannula intact. Tele box removed and returned to telegraph dispatcher room. All personal belongings returned to patient. Patient wheeled out via w/c by staff to private vehicle.
== END 2019-02-11 13:29 | disposition home health service (06) | DRG 871 ==
LOC: ER 10:22 → PCU 3S 15:15 → CMPBEDREQ 19:33
PROVIDERS: ADMIT Family Medicine; ATTEND Family Medicine
PROC: 5A09357 Assistance with Respiratory Ventilation, Less than 24 Consecutive Hours, Continuous Positive Airway Pressure (ICD-10-PCS; principal; 2019-02-07)
PROC: 5A09357 Assistance with Respiratory Ventilation, Less than 24 Consecutive Hours, Continuous Positive Airway Pressure (ICD-10-PCS; 2019-02-08)
PROC: 5A09357 Assistance with Respiratory Ventilation, Less than 24 Consecutive Hours, Continuous Positive Airway Pressure (ICD-10-PCS; 2019-02-09)
PROC: 5A09357 Assistance with Respiratory Ventilation, Less than 24 Consecutive Hours, Continuous Positive Airway Pressure (ICD-10-PCS; 2019-02-10)
DX: A41.9 Sepsis, unspecified organism (principal); G93.41 Metabolic encephalopathy; E43 Unspecified severe protein-calorie malnutrition; I50.33 Acute on chronic diastolic (congestive) heart failure; E87.2 Acidosis; N17.9 Acute kidney failure, unspecified; N39.0 Urinary tract infection, site not specified; I13.0 Hypertensive heart and chronic kidney disease with heart failure and stage 1 through stage 4 chronic kidney disease, or unspecified chronic kidney disease; Z68.41 Body mass index [BMI] 40.0-44.9, adult; E11.42 Type 2 diabetes mellitus with diabetic polyneuropathy; B96.1 Klebsiella pneumoniae [K. pneumoniae] as the cause of diseases classified elsewhere; D64.9 Anemia, unspecified; E11.22 Type 2 diabetes mellitus with diabetic chronic kidney disease; E11.65 Type 2 diabetes mellitus with hyperglycemia; F03.90 Unspecified dementia, unspecified severity, without behavioral disturbance, psychotic disturbance, mood disturbance, and anxiety; G47.30 Sleep apnea, unspecified; N18.9 Chronic kidney disease, unspecified; Z66 Do not resuscitate; Z79.4 Long term (current) use of insulin; Z85.51 Personal history of malignant neoplasm of bladder; Z86.14 Personal history of Methicillin resistant Staphylococcus aureus infection; Z90.49 Acquired absence of other specified parts of digestive tract; Z79.899 Other long term (current) drug therapy
CPT/HCPCS: 36415; 36600; 70450; 70544; 70551; 71045; 80048; 80053; 80061; 81001; 82803; 82948; 83605; 83880; 84145; 84443; 84484; 85018; 85025; 87040; 87077; 87081; 87088; 87186; 93005; 93306; 93880; 96361; 96365; 96366; 99285; G0378; J0360; J0696; J1644; J1815; J1940; J2060; J3420; J7030

== ENCOUNTER 2019-02-17 16:24 | Inpatient (IN) | payer OTHER, BC ==
[~2019-02-17] VITALS: Ht 177.8 cm; Wt 121.0 kg
[~2019-02-17 16:24] MED LIST changes: +ATOR40TA71 PO; -BROM0.8T PO; +CLOP75TA15 PO; -CLOP75TA35 PO; -DEXT38GE12 PO; +ISOS60TA4 PO; +LEVO500T2 PO; -MELO-102 PO; +METO-384 PO; -METO50TA17 PO; +NEFA200T PO; -SILD100T PO; -SIMV20TA5 PO
[2019-02-17] MEDS ORDERED: normal saline 1000ML IV soln IVB ONE (16:40)
[2019-02-17 18:35] LABS: BASOPHILS # (AUTO) 0.1 X10'3 (0-0.2); EOSINOPHILS # (AUTO) 0.3 X10'3 (0-0.9); EOSINOPHILS % (AUTO) 3.7 % (0-6); HEMATOCRIT 33.7 % (42.0-52.0); HEMOGLOBIN 11.5 g/dl (14.0-17.9); LYMPHOCYTES # (AUTO) 2.4 X10'3 (1.1-4.8); LYMPHOCYTES % (AUTO) 31.2 % (21-51); MEAN CORPUSCULAR HEMOGLOBIN 29.3 PG (27.0-31.0); MEAN PLATELET VOLUME 7.6 FL (7.4-10.4); MONOCYTES # (AUTO) 0.9 X10'3 (0-0.9); MONOCYTES % (AUTO) 11.1 % (2-12); NEUTROPHILS # (AUTO) 4.1 X10'3 (1.8-7.7); PLATELET COUNT 216 X10'3 (140-440); RED BLOOD COUNT 3.92 X10'6 (4.70-6.10); RED CELL DISTRIBUTION WIDTH 14.3 % (11.5-14.5); WHITE BLOOD COUNT 7.7 X10'3 (4.5-11.0)
[2019-02-17 18:45] LABS: D-DIMER 4.37 MG/L FEU (0-0.50)
[2019-02-17 19:04] LABS: ALANINE AMINOTRANSFERASE 20 U/L (12-78); ALBUMIN 2.5 G/DL (3.4-5.0); ALBUMIN/GLOBULIN RATIO 0.7 (1.1-1.5); ANION GAP 12 (8-16); ASPARTATE AMINO TRANSFERASE 14 U/L (10-37); BILIRUBIN,TOTAL 0.2 MG/DL (0.1-1.0); BLOOD UREA NITROGEN 76 MG/DL (7-18); BUN/CREATININE RATIO 29.2 (5.4-32.0); CALCIUM 8.5 MG/DL (8.5-10.1); CHLORIDE 102 MMOL/L (99-107); GLUCOSE 266 MG/DL (70-104); POTASSIUM 4.5 MMOL/L (3.5-5.1); SODIUM 137 MMOL/L (135-145); TOTAL CARBON DIOXIDE 22.9 MMOL/L (24-32); TOTAL PROTEIN 6.3 G/DL (6.4-8.2); eGFR 24 ML/MIN
[2019-02-17 19:11] LABS: ETHANOL < 0.010 GM/DL (0.0-0.010)
[2019-02-17 19:24] LABS: ALKALINE PHOSPHATASE 56 IU/L (46-116)
[2019-02-17 19:56] LABS: CLARITY,URINE CLEAR (Clear); COLOR,URINE YELLOW (Yellow); GLUCOSE, URINE 100 mg/dl (Neg); KETONES,URINE NEGATIVE (Neg); LEUKOCYTE ESTERASE ,URINE NEGATIVE (Neg); NITRITES, URINE NEGATIVE (Neg); OCCULT BLOOD,URINE TRACE-INTACT (Neg); PROTEIN,URINE NEGATIVE (Neg); UA COLLECTION TYPE CLN CATCH MIDSTREAM; UROBILINOGEN,URINE 0.2 E.U/dL (0.2-1.0)
[2019-02-17 20:02] LABS: BACTERIA,URINE NONE SEEN /HPF (Neg); MUCUS STRANDS NONE SEEN /LPF (Neg); RBC,URINE 0-2 /HPF (0-2); SQUAMOUS EPITHELIAL CELL,UR NONE SEEN /LPF (FEW); WBC,URINE NONE SEEN /HPF (0-4)
[2019-02-17] MEDS ORDERED: METO-467 PO (20:17)
[2019-02-17] MEDS ORDERED: LEVO500T2 PO (20:17)
[2019-02-17] MEDS ORDERED: ondansetron/PF 4mg/2ml inj IV PRN (21:40)
[2019-02-17] MEDS ORDERED: dextrose 50%-water 50ml dispensing syringe IV PRN ×2 (21:40)
[2019-02-17] MEDS ORDERED: acetaminophen 325mg tablet PO PRN ×2 (21:40)
[2019-02-17] MEDS ORDERED: dextrose ORAL solution 15 GM/59 ML bottle PO PRN ×2 (21:40)
[2019-02-17] MEDS ORDERED: MESSAGE TO PHARMACY PO ONE (21:40)
[2019-02-17] MEDS ORDERED: magnesium hydroxide 30ml (MOM) UD suspension PO PRN (21:40)
[2019-02-17] MEDS ORDERED: mag hydrox/Alum hydrox/simeth 30ml oral suspension PO PRN (21:40)
[2019-02-17] MEDS ORDERED: glucagon, human recombinant 1mg kit SUBCUT PRN (21:40)
[2019-02-17] MEDS ORDERED: nitroGLYCERIN 0.4mg SUBLingual tab SL PRN (21:50)
[2019-02-17] MEDS: normal saline 1000ml 1,000 ML IV SCH (21:56)
[2019-02-17 22:08] LABS: HEMOGLOBIN A1C 13.1 % (4.5-6.2)
--- NOTE | 2019-02-17 23:00 | NUR ---
report called from JAVAN Hutchison in ED. awaiting pt arrival to unit
--- NOTE | 2019-02-17 23:30 | NUR ---
pt arrived to unit via wheelchair, transferred self to bed, in no apparent distress. VSS, unable to DART r/t confusion, will continue to monitor.
[2019-02-18] VITALS: BP 168/51
[2019-02-18 06:32] LABS: BASOPHILS # (AUTO) 0.1 X10'3 (0-0.2); BASOPHILS % (AUTO) 0.8 % (0-1); EOSINOPHILS # (AUTO) 0.3 X10'3 (0-0.9); HEMATOCRIT 38.4 % (42.0-52.0); HEMOGLOBIN 12.9 g/dl (14.0-17.9); LYMPHOCYTES # (AUTO) 3.1 X10'3 (1.1-4.8); LYMPHOCYTES % (AUTO) 39.3 % (21-51); MEAN CORPUSCULAR HGB CONC 33.7 g/dL (33.0-36.5); MEAN CORPUSCULAR VOLUME 86.2 FL (78-98); MEAN PLATELET VOLUME 7.7 FL (7.4-10.4); MONOCYTES # (AUTO) 0.7 X10'3 (0-0.9); MONOCYTES % (AUTO) 9.4 % (2-12); NEUTROPHILS # (AUTO) 3.6 X10'3 (1.8-7.7); NEUTROPHILS % (AUTO) 46.5 % (42-75); PLATELET COUNT 239 X10'3 (140-440); RED BLOOD COUNT 4.46 X10'6 (4.70-6.10); RED CELL DISTRIBUTION WIDTH 14.5 % (11.5-14.5); WHITE BLOOD COUNT 7.8 X10'3 (4.5-11.0)
--- NOTE | 2019-02-18 06:42 | NUR ---
Problems reprioritized. Patient report given, questions answered & plan of care reviewed with JAVAN Parikh.
[2019-02-18 06:44] LABS: ANION GAP 11 (8-16); BLOOD UREA NITROGEN 65 MG/DL (7-18); BUN/CREATININE RATIO 31.3 (5.4-32.0); CALCIUM 9.1 MG/DL (8.5-10.1); CHLORIDE 105 MMOL/L (99-107); CREATININE 2.08 MG/DL (0.60-1.10); GLUCOSE 196 MG/DL (70-104); POTASSIUM 4.3 MMOL/L (3.5-5.1); SODIUM 140 MMOL/L (135-145); TOTAL CARBON DIOXIDE 23.6 MMOL/L (24-32); eGFR 32 ML/MIN
--- NOTE | 2019-02-18 07:03 | NUR ---
Patient in room [facility]AT[facility] 346. I have received report from TERESA EDOUARD and had the opportunity to ask questions and assume patient care.
[2019-02-18 07:11] VITALS: BP 108/57
[2019-02-18] MEDS: aspirin 81mg tablet.DR PO SCH (07:35)
[2019-02-18] MEDS: potassium Cl 20 mEq SR tablet PO SCH (07:35)
[2019-02-18] MEDS: isosorbide dinitrate 30mg tablet PO SCH (07:35)
[2019-02-18] MEDS: furosemide 40mg tablet PO SCH ×2 (07:36→21:03)
[2019-02-18] MEDS: magnesium oxide 400mg tablet PO SCH ×2 (07:37→21:04)
[2019-02-18] MEDS: clopidogrel 75mg tablet PO SCH (07:37)
[2019-02-18] MEDS: vitamin D (cholecalciferol) 1,000 unit tablet PO SCH (07:37)
[2019-02-18] MEDS: cyanocobalamin 500mcg tablet PO SCH (07:37)
[2019-02-18] MEDS: atorvastatin 20mg tablet PO SCH (07:38)
[2019-02-18] MEDS: metoprolol tartrate 50mg tablet PO SCH ×2 (07:39→20:00)
[2019-02-18] MEDS: lisinopril 20mg tablet PO SCH (07:49)
[2019-02-18] MEDS ORDERED: INSULIN REGULAR HUMAN 110 UNIT SQ SCH ×2 (08:00→21:00)
[2019-02-18] MEDS ORDERED: enoxaparin 40mg/0.4ml syringe SUBCUT SCH (08:00)
[2019-02-18] MEDS: normal saline 1000ml 1,000 ML IV SCH (11:45)
[2019-02-18 11:53] VITALS: BP 99/44
[2019-02-18] MEDS: insulin Lispro (HumaLOG) vial - multi-dose SQ SCH ×4 (14:33→21:18)
[2019-02-18] MEDS ORDERED: insulin Lispro (HumaLOG) vial - multi-dose SQ SCH (15:20)
--- NOTE | 2019-02-18 16:12 | NUR ---
DM consult, patient's seen at bedside and given written DM education handout with verbal review and referral to outpatient DM education class on Thursday. Patient confused currently per RN note. reports that even with taking insulin patient's blood glucose remains elevated. Patient has a history of peripheral neuropathy, is could be likely that he has delayed gastric emptying, his states that it had been questioned previously if he had gastroparesis or not. Provided patient's with written information on foods to eat with delayed gastric emptying. Presented by EMS with c/o chest pain, increasing confusion, fatigue, weakness per MD note. Per ED documentation patient was recently hospitalized in the past two weeks d/t UTI, sepsis, and hyperglycemia. Patient usually takes insulin at home. It is possible that with his increasing confusion he may be forgetting to take insulin as needed, however reports patient is able to take the insulin as directed. Admitted with acute dehydration, worsening confusion. He has a great appetite, eating 100%. Will send double meat and eggs for satiety. Recommend: 1. continue carb controlled diet 2. double eggs and meat 3. weight per rx Addendum: 02/18/19 at [address] Amended: Links added.
--- NOTE | 2019-02-18 18:38 | NUR ---
1530 patient c/o chest pain when ambulating with PT, returned to Bed. 12 lead EKG done Rapid response called. DR Ordonez aware. BS checked and was 366. 10 more units of insulin given per DR Ordonez. Patient VSS. . will coninue to monitor. Chest pain resolved following bedrest. present. patient resting in bed at time of report
--- NOTE | 2019-02-18 18:41 | NUR ---
Problems reprioritized. Patient report given, questions answered & plan of care reviewed with kee EDOUARD.
[2019-02-18 19:00] VITALS: BP 110/56
[2019-02-18] MEDS: NEFAZODONE HCL 200 MG PO SCH (21:00)
[2019-02-18] MEDS: insulin glargine (Lantus) pen - multi-dose SQ SCH (21:16)
[2019-02-19] VITALS: BP 154/69
[2019-02-19] MEDS: normal saline 1000ml 1,000 ML IV SCH ×3 (00:35→16:40)
[2019-02-19 05:14] LABS: BASOPHILS # (AUTO) 0.1 X10'3 (0-0.2); BASOPHILS % (AUTO) 1.2 % (0-1); EOSINOPHILS # (AUTO) 0.3 X10'3 (0-0.9); EOSINOPHILS % (AUTO) 4.2 % (0-6); HEMATOCRIT 35.3 % (42.0-52.0); HEMOGLOBIN 11.9 g/dl (14.0-17.9); LYMPHOCYTES # (AUTO) 2.6 X10'3 (1.1-4.8); LYMPHOCYTES % (AUTO) 32.9 % (21-51); MEAN CORPUSCULAR HEMOGLOBIN 28.7 PG (27.0-31.0); MEAN CORPUSCULAR HGB CONC 33.7 g/dL (33.0-36.5); MEAN CORPUSCULAR VOLUME 85.2 FL (78-98); MEAN PLATELET VOLUME 7.5 FL (7.4-10.4); MONOCYTES # (AUTO) 0.7 X10'3 (0-0.9); MONOCYTES % (AUTO) 9.1 % (2-12); NEUTROPHILS # (AUTO) 4.1 X10'3 (1.8-7.7); NEUTROPHILS % (AUTO) 52.6 % (42-75); PLATELET COUNT 222 X10'3 (140-440); RED BLOOD COUNT 4.15 X10'6 (4.70-6.10); RED CELL DISTRIBUTION WIDTH 14.3 % (11.5-14.5); WHITE BLOOD COUNT 7.8 X10'3 (4.5-11.0)
[2019-02-19 06:16] LABS: ALBUMIN 2.6 G/DL (3.4-5.0); ANION GAP 10 (8-16); BLOOD UREA NITROGEN 61 MG/DL (7-18); BUN/CREATININE RATIO 29.2 (5.4-32.0); CALCIUM 8.9 MG/DL (8.5-10.1); CHLORIDE 107 MMOL/L (99-107); CREATININE 2.09 MG/DL (0.60-1.10); GLUCOSE 202 MG/DL (70-104); POTASSIUM 4.7 MMOL/L (3.5-5.1); SODIUM 141 MMOL/L (135-145); TOTAL CARBON DIOXIDE 23.6 MMOL/L (24-32); eGFR 31 ML/MIN
--- NOTE | 2019-02-19 06:40 | NUR ---
Problems reprioritized. Patient report given, questions answered & plan of care reviewed with Sushma EDOUARD. Addendum: 02/19/19 at 0640 by Kareen Dorsey RN Amended: Links added.
[2019-02-19 07:00] VITALS: BP 138/69
--- NOTE | 2019-02-19 07:03 | NUR ---
Patient in room [facility]AT[facility] 346. I have received report from Kareen EDOUARD and had the opportunity to ask questions and assume patient care.
[2019-02-19] MEDS: insulin Lispro (HumaLOG) vial - multi-dose SQ SCH ×3 (09:12→18:46)
[2019-02-19] MEDS: atorvastatin 20mg tablet PO SCH (09:14)
[2019-02-19] MEDS: potassium Cl 20 mEq SR tablet PO SCH (09:14)
[2019-02-19] MEDS: magnesium oxide 400mg tablet PO SCH ×2 (09:15→20:22)
[2019-02-19] MEDS: lisinopril 20mg tablet PO SCH (09:15)
[2019-02-19] MEDS: furosemide 40mg tablet PO SCH ×2 (09:15→20:22)
[2019-02-19] MEDS: vitamin D (cholecalciferol) 1,000 unit tablet PO SCH (09:15)
[2019-02-19] MEDS: cyanocobalamin 500mcg tablet PO SCH (09:15)
[2019-02-19] MEDS: clopidogrel 75mg tablet PO SCH (09:15)
[2019-02-19] MEDS: metoprolol tartrate 50mg tablet PO SCH ×2 (09:16→20:00)
[2019-02-19] MEDS: aspirin 81mg tablet.DR PO SCH (09:16)
[2019-02-19] MEDS: isosorbide dinitrate 30mg tablet PO SCH (09:16)
[2019-02-19] MEDS: enoxaparin 30mg/0.3ml syringe SUBCUT SCH (09:17)
[2019-02-19 09:40] VITALS: BP 85/49
[2019-02-19 10:00] VITALS: BP 110/60
[2019-02-19] MEDS ORDERED: normal saline 500ml IV soln 500 ML IV ONE (10:15)
[2019-02-19 11:40] VITALS: BP 110/60
--- NOTE | 2019-02-19 18:25 | NUR ---
Problems reprioritized. Patient report given, questions answered & plan of care reviewed with Bre EDOUARD and Mirlande EDOUARD.
--- NOTE | 2019-02-19 18:25 | NUR ---
Received report from Sushma EDOUARD pt is awake just finished eating dinner,wearing his C-PAP,in no apparent distress.
[2019-02-19 19:00] VITALS: BP 122/59
[2019-02-19] MEDS: NEFAZODONE HCL 200 MG PO SCH (21:00)
[2019-02-19] MEDS: insulin glargine (Lantus) pen - multi-dose SQ SCH (21:12)
--- NOTE | 2019-02-19 21:54 | NUR ---
Notified Dr. Cheatham of 3 beat run of V-tach promotional table spacer PAGER ID: [phone] MESSAGE: Mirlande RN- [phone] pt Nathen Leonides rm 346A had a 3 beat run of V-tach, asymptomatic and sleeping, B/P:124/62 HRL61 T:98.0. Thanks
--- NOTE | 2019-02-19 22:11 | NUR ---
Spoke with Dr. Caballero regarding chest pain pt had had at a previous time. According to past note it appears pt had chest pain when ambulating. Dr. Caballero suggested keeping pt NPO and ambulating pt when he is awake to see if the chest pain is reproducable, he stated for Day shift to contact him before 08 to give an update. Addendum: 02/19/19 at 2217 by Mirlande Palm RN Informed Dr. Caballero of pts 3 beat run V-tach, and VS of 124/62, HR:61, and that pt is asymptomatic.
[2019-02-20] VITALS (10 sets, daily range): BP systolic 104–140; BP diastolic 48–71
[2019-02-20] MEDS: normal saline 1000ml 1,000 ML IV SCH ×2 (04:52→20:25)
[2019-02-20 05:14] LABS: BASOPHILS # (AUTO) 0.1 X10'3 (0-0.2); EOSINOPHILS # (AUTO) 0.4 X10'3 (0-0.9); EOSINOPHILS % (AUTO) 4.4 % (0-6); HEMATOCRIT 36.1 % (42.0-52.0); HEMOGLOBIN 12.2 g/dl (14.0-17.9); LYMPHOCYTES # (AUTO) 3.3 X10'3 (1.1-4.8); LYMPHOCYTES % (AUTO) 36.9 % (21-51); MEAN CORPUSCULAR HEMOGLOBIN 29.1 PG (27.0-31.0); MEAN CORPUSCULAR HGB CONC 33.7 g/dL (33.0-36.5); MEAN CORPUSCULAR VOLUME 86.2 FL (78-98); MEAN PLATELET VOLUME 7.5 FL (7.4-10.4); MONOCYTES # (AUTO) 0.8 X10'3 (0-0.9); MONOCYTES % (AUTO) 9.1 % (2-12); NEUTROPHILS # (AUTO) 4.4 X10'3 (1.8-7.7); NEUTROPHILS % (AUTO) 48.6 % (42-75); PLATELET COUNT 240 X10'3 (140-440); RED BLOOD COUNT 4.19 X10'6 (4.70-6.10); RED CELL DISTRIBUTION WIDTH 15.1 % (11.5-14.5)
[2019-02-20 05:30] LABS: ALBUMIN 2.9 G/DL (3.4-5.0); ANION GAP 13 (8-16); BLOOD UREA NITROGEN 53 MG/DL (7-18); BUN/CREATININE RATIO 25.4 (5.4-32.0); CALCIUM 8.9 MG/DL (8.5-10.1); CHLORIDE 105 MMOL/L (99-107); CREATININE 2.09 MG/DL (0.60-1.10); GLUCOSE 135 MG/DL (70-104); POTASSIUM 4.5 MMOL/L (3.5-5.1); SODIUM 139 MMOL/L (135-145); TOTAL CARBON DIOXIDE 21.1 MMOL/L (24-32); eGFR 31 ML/MIN
--- NOTE | 2019-02-20 06:38 | NUR ---
Gave report to Amie EDOUARD pt is currently getting vitals down, on RA, call light and items of freq use within reach, informed pt he has to get up and walk here soon.
--- NOTE | 2019-02-20 06:38 | NUR ---
Patient in room [facility]AT[facility] 346. I have received report from iBlly EDOUARD and had the opportunity to ask questions and assume patient care.
[2019-02-20] MEDS: atorvastatin 20mg tablet PO SCH (08:03)
[2019-02-20] MEDS: clopidogrel 75mg tablet PO SCH (08:03)
[2019-02-20] MEDS: aspirin 81mg tablet.DR PO SCH (08:03)
[2019-02-20] MEDS: potassium Cl 20 mEq SR tablet PO SCH (08:03)
[2019-02-20] MEDS: furosemide 40mg tablet PO SCH ×2 (08:03→20:12)
[2019-02-20] MEDS: cyanocobalamin 500mcg tablet PO SCH (08:03)
[2019-02-20] MEDS: vitamin D (cholecalciferol) 1,000 unit tablet PO SCH (08:03)
[2019-02-20] MEDS: magnesium oxide 400mg tablet PO SCH ×2 (08:03→20:13)
[2019-02-20] MEDS: enoxaparin 30mg/0.3ml syringe SUBCUT SCH (08:04)
[2019-02-20] MEDS: insulin Lispro (HumaLOG) vial - multi-dose SQ SCH ×4 (08:06→22:37)
[2019-02-20] MEDS: metoprolol tartrate 50mg tablet PO SCH ×2 (08:08→20:00)
[2019-02-20] MEDS ORDERED: metoprolol tartrate 1mg/ml inj IV PRN (08:35)
[2019-02-20] MEDS ORDERED: nitroGLYCERIN 0.4mg SUBLingual tab SL PRN (08:35)
[2019-02-20] MEDS ORDERED: aminophylline 250mg/10ml inj. IV PRN (08:35)
[2019-02-20] MEDS ORDERED: regadenoson 0.4mg/5ml syringe IV ONE (08:35)
[2019-02-20 08:38] LABS: MAGNESIUM 1.9 MG/DL (1.5-2.4)
[2019-02-20] MEDS ORDERED: potassium CL 10mEq/100ml bag 100 ML IV PRN (09:20)
--- NOTE | 2019-02-20 11:57 | NUR ---
Patient on the unit returning from Estephania scan
[2019-02-20] MEDS: magnesium Cl slow-release 64mg tablet PO PRN (12:32)
--- NOTE | 2019-02-20 18:20 | NUR ---
Patient in room [facility]AT[facility] 346. I have received report from JAVAN Marquez and had the opportunity to ask questions and assume patient care.
--- NOTE | 2019-02-20 19:25 | NUR ---
Dr Caballero called to verify pt's wifes phone number. No additional phone numbers listed, pt states only cell phone, no home line. . asked to call through answering service should we be able to contact her. MD cassidy heart healthy diet. No new procedures at this time. No need for NPO at midnight.
[2019-02-20] MEDS: NEFAZODONE HCL 200 MG PO SCH (21:00)
[2019-02-20] MEDS: insulin glargine (Lantus) pen - multi-dose SQ SCH (22:38)
[2019-02-21] MEDS: magnesium Cl slow-release 64mg tablet PO PRN (00:08)
[2019-02-21 00:10] VITALS: BP 128/61
--- NOTE | 2019-02-21 00:15 | NUR ---
Patient last BM was 02/18/19. Pt has daily BM. Offered milk of magnesia and prune juice and pt declined
[2019-02-21 05:15] LABS: BASOPHILS # (AUTO) 0.1 X10'3 (0-0.2); BASOPHILS % (AUTO) 1.1 % (0-1); EOSINOPHILS # (AUTO) 0.3 X10'3 (0-0.9); HEMATOCRIT 38.5 % (42.0-52.0); HEMOGLOBIN 12.9 g/dl (14.0-17.9); LYMPHOCYTES # (AUTO) 2.9 X10'3 (1.1-4.8); LYMPHOCYTES % (AUTO) 37.2 % (21-51); MEAN CORPUSCULAR HEMOGLOBIN 28.8 PG (27.0-31.0); MEAN CORPUSCULAR HGB CONC 33.4 g/dL (33.0-36.5); MEAN CORPUSCULAR VOLUME 86.1 FL (78-98); MEAN PLATELET VOLUME 7.4 FL (7.4-10.4); MONOCYTES # (AUTO) 0.8 X10'3 (0-0.9); NEUTROPHILS # (AUTO) 3.8 X10'3 (1.8-7.7); NEUTROPHILS % (AUTO) 47.7 % (42-75); PLATELET COUNT 248 X10'3 (140-440); RED BLOOD COUNT 4.47 X10'6 (4.70-6.10); RED CELL DISTRIBUTION WIDTH 14.7 % (11.5-14.5); WHITE BLOOD COUNT 7.9 X10'3 (4.5-11.0)
[2019-02-21 05:21] LABS: ALBUMIN 3.1 G/DL (3.4-5.0); ANION GAP 12 (8-16); BLOOD UREA NITROGEN 43 MG/DL (7-18); BUN/CREATININE RATIO 20.7 (5.4-32.0); CHLORIDE 106 MMOL/L (99-107); CREATININE 2.08 MG/DL (0.60-1.10); GLUCOSE 215 MG/DL (70-104); MAGNESIUM 2.1 MG/DL (1.5-2.4); SODIUM 143 MMOL/L (135-145); eGFR 32 ML/MIN
--- NOTE | 2019-02-21 06:30 | NUR ---
Patient in room [facility]ATUN[facility] 346. I have received report from Leatha Keenan and Bre EDOUARD and had the opportunity to ask questions and assume patient care. Will continue to monitor.
--- NOTE | 2019-02-21 06:32 | NUR ---
Problems reprioritized. Patient report given, questions answered & plan of care reviewed with JAVAN Camacho.
[2019-02-21 07:27] VITALS: BP 151/94
[2019-02-21] MEDS: insulin Lispro (HumaLOG) vial - multi-dose SQ SCH ×3 (09:03→18:43)
[2019-02-21] MEDS: potassium Cl 20 mEq SR tablet PO SCH (09:05)
[2019-02-21] MEDS: cyanocobalamin 500mcg tablet PO SCH (09:05)
[2019-02-21] MEDS: magnesium oxide 400mg tablet PO SCH ×2 (09:07→20:53)
[2019-02-21] MEDS: metoprolol tartrate 50mg tablet PO SCH ×2 (09:07→20:53)
[2019-02-21] MEDS: atorvastatin 20mg tablet PO SCH (09:08)
[2019-02-21] MEDS: vitamin D (cholecalciferol) 1,000 unit tablet PO SCH (09:08)
[2019-02-21] MEDS: normal saline 1000ml 1,000 ML IV SCH (09:12)
--- NOTE | 2019-02-21 10:00 | NUR ---
Discussed with Dr. Ordonez and Yisel Griffin if patient will be going to heart cath, per family and patient medication management will be the plan. Asked Dr. Ordonez about the anticoagulants and antiplatelets, received order okay to provide. Will continue to monitor.
[2019-02-21 11:00] VITALS: BP 129/53
[2019-02-21] MEDS: isosorbide mononitrate 30mg tab.SR.24H PO SCH (11:32)
[2019-02-21] MEDS: clopidogrel 75mg tablet PO SCH (11:33)
[2019-02-21] MEDS: aspirin 81mg tablet.DR PO SCH (11:33)
[2019-02-21] MEDS: enoxaparin 30mg/0.3ml syringe SUBCUT SCH (11:34)
--- NOTE | 2019-02-21 11:45 | NUR ---
Patient has been maintaining in the 120s and was in the 60s prior. Patient is also having a junctional tach rhythm per tele box. Vitals stable with HR 121, no discomfort or change in feeling per patient. Paged Dr. Ordonez for advise.
[2019-02-21] MEDS ORDERED: isosorbide mononitrate 30mg tab.SR.24H PO SCH (12:00)
[2019-02-21 18:00] VITALS: BP 110/53
--- NOTE | 2019-02-21 18:15 | NUR ---
Patient in room [facility]ATUN[facility] 346. I have received report from JAVAN Camacho and had the opportunity to ask questions and assume patient care.
--- NOTE | 2019-02-21 18:15 | NUR ---
Problems reprioritized. Patient report given, questions answered & plan of care reviewed with Leatha Keenan RN. Patient resting in bed watching TV.
[2019-02-21] MEDS: insulin glargine (Lantus) pen - multi-dose SQ SCH (20:57)
[2019-02-21] MEDS: NEFAZODONE HCL 200 MG PO SCH (21:00)
--- NOTE | 2019-02-21 21:00 | NUR ---
Pt bumped to accuchek level 5. Blood glucose 77. Continued Lantus. Provided pt with sandwich at time of administration.
[2019-02-21 23:59] VITALS: BP 103/43
[2019-02-22 05:34] LABS: BASOPHILS # (AUTO) 0.1 X10'3 (0-0.2); BASOPHILS % (AUTO) 0.9 % (0-1); EOSINOPHILS # (AUTO) 0.3 X10'3 (0-0.9); HEMATOCRIT 32.5 % (42.0-52.0); HEMOGLOBIN 11.1 g/dl (14.0-17.9); LYMPHOCYTES # (AUTO) 2.6 X10'3 (1.1-4.8); LYMPHOCYTES % (AUTO) 38.7 % (21-51); MEAN CORPUSCULAR HEMOGLOBIN 29.1 PG (27.0-31.0); MEAN CORPUSCULAR HGB CONC 34.3 g/dL (33.0-36.5); MEAN CORPUSCULAR VOLUME 84.6 FL (78-98); MEAN PLATELET VOLUME 7.5 FL (7.4-10.4); MONOCYTES # (AUTO) 0.7 X10'3 (0-0.9); MONOCYTES % (AUTO) 9.9 % (2-12); NEUTROPHILS % (AUTO) 45.5 % (42-75); PLATELET COUNT 197 X10'3 (140-440); RED BLOOD COUNT 3.84 X10'6 (4.70-6.10); RED CELL DISTRIBUTION WIDTH 14.8 % (11.5-14.5); WHITE BLOOD COUNT 6.6 X10'3 (4.5-11.0)
[2019-02-22 05:51] LABS: ALBUMIN 2.6 G/DL (3.4-5.0); ANION GAP 9 (8-16); BLOOD UREA NITROGEN 43 MG/DL (7-18); BUN/CREATININE RATIO 20.1 (5.4-32.0); CALCIUM 8.9 MG/DL (8.5-10.1); CHLORIDE 108 MMOL/L (99-107); CREATININE 2.14 MG/DL (0.60-1.10); GLUCOSE 187 MG/DL (70-104); MAGNESIUM 2.1 MG/DL (1.5-2.4); POTASSIUM 4.3 MMOL/L (3.5-5.1); SODIUM 141 MMOL/L (135-145); TOTAL CARBON DIOXIDE 23.7 MMOL/L (24-32); eGFR 31 ML/MIN
--- NOTE | 2019-02-22 06:39 | NUR ---
Problems reprioritized. Patient report given, questions answered & plan of care reviewed with JAVAN Hoover.
[2019-02-22 08:00] VITALS: BP 121/51
[2019-02-22] MEDS: aspirin 81mg tablet.DR PO SCH (08:46)
[2019-02-22] MEDS: potassium Cl 20 mEq SR tablet PO SCH (08:47)
[2019-02-22] MEDS: atorvastatin 20mg tablet PO SCH (08:48)
[2019-02-22] MEDS: furosemide 40mg tablet PO SCH (08:48)
[2019-02-22] MEDS: metoprolol tartrate 50mg tablet PO SCH ×2 (08:49→20:03)
[2019-02-22] MEDS: vitamin D (cholecalciferol) 1,000 unit tablet PO SCH (08:50)
[2019-02-22] MEDS: clopidogrel 75mg tablet PO SCH (08:50)
[2019-02-22] MEDS: magnesium oxide 400mg tablet PO SCH ×2 (08:50→20:02)
[2019-02-22] MEDS: enoxaparin 30mg/0.3ml syringe SUBCUT SCH (08:51)
[2019-02-22] MEDS: isosorbide mononitrate 30mg tab.SR.24H PO SCH (08:51)
[2019-02-22] MEDS: cyanocobalamin 500mcg tablet PO SCH (08:52)
[2019-02-22] MEDS: insulin Lispro (HumaLOG) vial - multi-dose SQ SCH ×2 (09:07→13:17)
[2019-02-22 11:00] VITALS: BP 140/66
[2019-02-22 18:00] VITALS: BP 110/51
--- NOTE | 2019-02-22 18:33 | NUR ---
Blood glucose 72 - not treating with short acting insulin at this time.
--- NOTE | 2019-02-22 18:45 | NUR ---
Problems reprioritized. Patient report given, questions answered & plan of care reviewed with Leatha Harris RN.
[2019-02-22] MEDS: NEFAZODONE HCL 200 MG PO SCH (20:03)
[2019-02-22] MEDS: insulin glargine (Lantus) pen - multi-dose SQ SCH (21:20)
[2019-02-23] VITALS: BP 116/60
[2019-02-23 05:09] LABS: MAGNESIUM 2.2 MG/DL (1.5-2.4); POTASSIUM 4.5 MMOL/L (3.5-5.1)
--- NOTE | 2019-02-23 06:17 | NUR ---
Problems reprioritized. Patient report given, questions answered & plan of care reviewed with JAVAN Snow.
[2019-02-23 07:25] VITALS: BP 131/49
[2019-02-23] MEDS: magnesium oxide 400mg tablet PO SCH (08:14)
[2019-02-23] MEDS: cyanocobalamin 500mcg tablet PO SCH (08:14)
[2019-02-23] MEDS: clopidogrel 75mg tablet PO SCH (08:14)
[2019-02-23] MEDS: atorvastatin 20mg tablet PO SCH (08:14)
[2019-02-23] MEDS: potassium Cl 20 mEq SR tablet PO SCH (08:14)
[2019-02-23] MEDS: enoxaparin 30mg/0.3ml syringe SUBCUT SCH (08:15)
[2019-02-23] MEDS: furosemide 40mg tablet PO SCH (08:15)
[2019-02-23] MEDS: vitamin D (cholecalciferol) 1,000 unit tablet PO SCH (08:15)
[2019-02-23] MEDS: aspirin 81mg tablet.DR PO SCH (08:15)
[2019-02-23] MEDS: metoprolol tartrate 50mg tablet PO SCH (08:16)
[2019-02-23] MEDS: insulin Lispro (HumaLOG) vial - multi-dose SQ SCH (08:31)
[2019-02-23 11:00] VITALS: BP 140/46
--- NOTE | 2019-02-23 11:06 | NUR ---
Reassessment: Per MD notes OH stable and metabolic encephalopathy improving although pt possibly with dementia. Pt continues meeting nutrient needs with documented 100% PO intake on heart healthy CHO controlled diet receiving double eggs at breakfast and double protein TID. LB 02/20. D/w dietary to send power pudding with dinner tonight. Will continue to follow. Recommend: 1. continue carb controlled heart healthy diet 2. double eggs QD at breakfast; double meat TID 3. bowel care 4. weight per rx Addendum: 02/23/19 at [address] Amended: Links added.
[2019-02-23] MEDS ORDERED: isosorbide mononitrate 30mg tab.SR.24H PO SCH (12:00)
--- NOTE | 2019-02-23 12:00 | NUR ---
IV removed, phototypesetting equipment monitor removed. 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
--- NOTE | 2019-02-23 12:34 | NUR ---
Report called to Jag Yeboah. Patient picked up via [employer].
== END 2019-02-23 12:08 | DRG 70 ==
LOC: ER 16:24 → SUR 3N 21:38 → EDBEDREQ 22:08 → UNDOADMOB 23:16 → SUR 3N 23:16 → INTOOBSV 23:16 → OBSVTOIN 23:16
PROVIDERS: ADMIT Hospitalist; ATTEND Family Medicine
PROC: CB121ZZ Planar Nuclear Medicine Imaging of Lungs and Bronchi using Technetium 99m (Tc-99m) (ICD-10-PCS; 2019-02-19)
PROC: 4A02XM4 Measurement of Cardiac Total Activity, External Approach (ICD-10-PCS; principal; 2019-02-20)
PROC: 3E033HZ Introduction of Radioactive Substance into Peripheral Vein, Percutaneous Approach (ICD-10-PCS; 2019-02-20)
DX: G93.41 Metabolic encephalopathy (principal); E43 Unspecified severe protein-calorie malnutrition; I50.33 Acute on chronic diastolic (congestive) heart failure; N17.9 Acute kidney failure, unspecified; I13.0 Hypertensive heart and chronic kidney disease with heart failure and stage 1 through stage 4 chronic kidney disease, or unspecified chronic kidney disease; E86.0 Dehydration; D64.9 Anemia, unspecified; E11.22 Type 2 diabetes mellitus with diabetic chronic kidney disease; E66.9 Obesity, unspecified; Z68.38 Body mass index [BMI] 38.0-38.9, adult; E78.5 Hyperlipidemia, unspecified; I25.119 Atherosclerotic heart disease of native coronary artery with unspecified angina pectoris; E11.65 Type 2 diabetes mellitus with hyperglycemia; E11.42 Type 2 diabetes mellitus with diabetic polyneuropathy; F03.90 Unspecified dementia, unspecified severity, without behavioral disturbance, psychotic disturbance, mood disturbance, and anxiety; G47.33 Obstructive sleep apnea (adult) (pediatric); F43.10 Post-traumatic stress disorder, unspecified; I87.2 Venous insufficiency (chronic) (peripheral); M17.10 Unilateral primary osteoarthritis, unspecified knee; I95.9 Hypotension, unspecified; M10.9 Gout, unspecified; N18.3 Chronic kidney disease, stage 3 (moderate); Z66 Do not resuscitate; Z82.49 Family history of ischemic heart disease and other diseases of the circulatory system; Z79.82 Long term (current) use of aspirin; Z79.899 Other long term (current) drug therapy; Z85.51 Personal history of malignant neoplasm of bladder; Z87.11 Personal history of peptic ulcer disease; Z79.4 Long term (current) use of insulin; Z90.49 Acquired absence of other specified parts of digestive tract; Z86.14 Personal history of Methicillin resistant Staphylococcus aureus infection; Z95.5 Presence of coronary angioplasty implant and graft
CPT/HCPCS: 36415; 71045; 78452; 78582; 80048; 80053; 80320; 81001; 82140; 82948; 83036; 83735; 83880; 84132; 84484; 85025; 85379; 85610; 87081; 93005; 93017; 93971; 96360; 96361; 97116; 97161; 97530; 99285; A9500; A9539; A9540; G0378; J1650; J1815; J2785; J3420; J7030; J7040

== ENCOUNTER 2019-05-28 17:31 | Emergency (ER) | payer BC, MEDICARE ==
[~2019-05-28] VITALS: Ht 177.8 cm; Wt 128.0 kg
[~2019-05-28 17:31] MED LIST changes: -ALLO300T2 PO; -DESO15CR13 TP; -KETO120S3 TOP; -METO-384 PO; +METO-467 PO
[2019-05-28] MEDS ORDERED: normal saline 1000ML IV soln IVB ONE ×2 (19:55)
[2019-05-28 20:05] LABS: BASOPHILS # (AUTO) 0.1 X10'3 (0-0.2); EOSINOPHILS # (AUTO) 0.3 X10'3 (0-0.9); HEMOGLOBIN 14.8 g/dl (14.0-17.9); MEAN PLATELET VOLUME 8.1 FL (7.4-10.4); MONOCYTES # (AUTO) 0.6 X10'3 (0-0.9)
[2019-05-28 20:06] LABS: PARTIAL THROMBOPLASTIN TIME 22 SECONDS (22-32)
[2019-05-28 20:08] LABS: BASOPHILS % (AUTO) 0.8 % (0-1); EOSINOPHILS % (AUTO) 3.8 % (0-6); HEMATOCRIT 42.1 % (42.0-52.0); LYMPHOCYTES # (AUTO) 3.2 X10'3 (1.1-4.8); LYMPHOCYTES % (AUTO) 38.4 % (21-51); MEAN CORPUSCULAR HEMOGLOBIN 30.2 PG (27.0-31.0); MEAN CORPUSCULAR HGB CONC 35.2 g/dL (33.0-36.5); MEAN CORPUSCULAR VOLUME 85.6 FL (78-98); MONOCYTES % (AUTO) 7.3 % (2-12); NEUTROPHILS # (AUTO) 4.1 X10'3 (1.8-7.7); NEUTROPHILS % (AUTO) 49.7 % (42-75); PLATELET COUNT 171 X10'3 (140-440); RED BLOOD COUNT 4.92 X10'6 (4.70-6.10); WHITE BLOOD COUNT 8.2 X10'3 (4.5-11.0)
[2019-05-28 21:22] LABS: CLARITY,URINE CLEAR (Clear); COLOR,URINE YELLOW (Yellow); GLUCOSE, URINE >=1000 mg/dl (Neg); KETONES,URINE NEGATIVE (Neg); LEUKOCYTE ESTERASE ,URINE NEGATIVE (Neg); NITRITES, URINE NEGATIVE (Neg); OCCULT BLOOD,URINE TRACE-INTACT (Neg); PH,URINE 6.5 (4.8-8.0); PROTEIN,URINE TRACE mg/dl (Neg); UROBILINOGEN,URINE 0.2 E.U/dL (0.2-1.0)
[2019-05-28 21:30] LABS: UA COLLECTION TYPE CLN CATCH MIDSTREAM
[2019-05-28 21:31] LABS: BACTERIA,URINE NONE SEEN /HPF (Neg); RBC,URINE 0-2 /HPF (0-2); SQUAMOUS EPITHELIAL CELL,UR FEW /LPF (FEW); WBC,URINE NONE SEEN /HPF (0-4)
[2019-05-28 21:31] LABS: ALANINE AMINOTRANSFERASE 22 U/L (12-78); ALBUMIN 3.5 G/DL (3.4-5.0); ALBUMIN/GLOBULIN RATIO 0.9 (1.1-1.5); ALKALINE PHOSPHATASE 79 IU/L (46-116); ANION GAP 12 (8-16); ASPARTATE AMINO TRANSFERASE 15 U/L (10-37); BILIRUBIN,TOTAL 0.4 MG/DL (0.1-1.0); BLOOD UREA NITROGEN 39 MG/DL (7-18); CALCIUM 8.8 MG/DL (8.5-10.1); CHLORIDE 95 MMOL/L (99-107); CREATININE 2.05 MG/DL (0.60-1.10); MAGNESIUM 2.1 MG/DL (1.5-2.4); SODIUM 131 MMOL/L (135-145); TOTAL CARBON DIOXIDE 24.4 MMOL/L (24-32); TOTAL PROTEIN 7.4 G/DL (6.4-8.2); eGFR 32 ML/MIN
[2019-05-28 21:40] LABS: GLUCOSE 488 MG/DL (70-104)
[2019-05-28] MEDS ORDERED: sulfamethoxazole/trimethoprim DS (800/160mg) tablet PO ONE (22:05)
[2019-05-28] MEDS ORDERED: insulin regular, human 10 units/0.1 ml syringe IV ONE ×3 (22:05→23:35)
[2019-05-28] MEDS ORDERED: SULF1TAB49 PO (22:06)
--- NOTE | 2019-05-28 23:33 | NUR ---
NOTIFIED DR TRISHA GILLILAND OF PT NEW BLOOD SUGAR OF 356. VERBAL ORDER FOR REGULAR INSULIN 10UNITS IV NOW.
[2019-05-29 01:43] VITALS: BP 158/85
== END 2019-05-29 01:45 | disposition home or self-care (01) ==
LOC: ER 17:32
DX: E11.65 Type 2 diabetes mellitus with hyperglycemia (principal); L08.89 Other specified local infections of the skin and subcutaneous tissue; I11.0 Hypertensive heart disease with heart failure; I50.9 Heart failure, unspecified; E11.9 Type 2 diabetes mellitus without complications; Z86.14 Personal history of Methicillin resistant Staphylococcus aureus infection; Z98.890 Other specified postprocedural states; Z90.49 Acquired absence of other specified parts of digestive tract; Z79.82 Long term (current) use of aspirin; Z79.899 Other long term (current) drug therapy; Z79.4 Long term (current) use of insulin
CPT/HCPCS: 36415; 71045; 80053; 81001; 82948; 83605; 83735; 83880; 84145; 85025; 85610; 85730; 87040; 93005; 96361; 96374; 96376; 99284; J1815; J7030